=== PATIENT | male | born 1965 | race Caucasian/White ===

== ENCOUNTER 2017-11-03 10:22 | Emergency (ER) | payer MEDICAID ==
[~2017-11-03] VITALS: Ht 185.4 cm; Wt 79.4 kg
--- NOTE | 2017-11-03 10:46 | NUR ---
[facility]: ABNORMAL CT ABDOMEN "DEHISCENCE AT ANASTOMOSIS WITH LARGE LOCULATED GAS COLLECTION EXTENDING ALONG L ANTERIOR ABDOMINAL CAVITY". PT IS AAOX3 AND NAD IS PRESENT. VSS. AWAITING MD EVAL.
[2017-11-03] MEDS ORDERED: PIPERACILLIN /TAZOBACTAM 3.375 G in IV D5W 50 ML IV ONE (11:30)
[2017-11-03] MEDS: IV NS 0.9% 1,000 ML BAG IV ONE (11:40)
[2017-11-03 11:47] LABS: BASOPHILS # (AUTO) 0.3 /CMM (0.0-0.2); BASOPHILS % (AUTO) 2.4 % (0.0-2.0); EOSINOPHILS # (AUTO) 0.2 /CMM (0.0-0.7); EOSINOPHILS % (AUTO) 1.4 % (0.0-6.0); HEMATOCRIT 25 % (39-51); HEMOGLOBIN 8.6 g/dL (13.5-17.5); LYMPHOCYTES # (AUTO) 1.1 /CMM (0.8-4.8); LYMPHOCYTES % (AUTO) 8.8 % (20.0-44.0); MEAN CORPUSCULAR HEMOGLOBIN 28 PG (26.0-33.0); MEAN CORPUSCULAR HGB CONC 34 g/dl (31.0-36.0); MEAN CORPUSCULAR VOLUME 82 fL (80-96); MONOCYTES # (AUTO) 1.3 /CMM (0.1-1.30); NEUTROPHILS # (AUTO) 9.3 /CMM (1.8-8.9); NEUTROPHILS % (AUTO) 76.4 % (43.0-81.0); PLATELET COUNT (AUTO) 259 /CMM (150-450); RDW COEFFICIENT OF VARIATION 15.4 (11.5-15.0); WHITE BLOOD COUNT (AUTO) 12.2 K/uL (4.3-11.0)
[2017-11-03 11:56] LABS: CREATININE 1.5 mg/dL (0.6-1.3); POTASSIUM 3.5 mmol/L (3.5-5.1)
[2017-11-03 12:00] LABS: INR 1.01 (0.87-1.13)
[2017-11-03] MEDS ORDERED: NA P133E RC (12:01)
[2017-11-03] MEDS ORDERED: MECL-102 PO (12:01)
[2017-11-03] MEDS ORDERED: CARV6.25 PO (12:01)
[2017-11-03] MEDS ORDERED: PANT40TA2 PO (12:01)
[2017-11-03] MEDS ORDERED: CALC0.5C11 PO (12:01)
[2017-11-03] MEDS ORDERED: BISA10SU8 RC (12:01)
[2017-11-03] MEDS ORDERED: ONDA4TAB5 PO (12:01)
[2017-11-03] MEDS ORDERED: FERR-58 PO (12:01)
[2017-11-03] MEDS ORDERED: ACET-868 PO (12:01)
[2017-11-03] MEDS ORDERED: MAGN400O6 PO (12:01)
[2017-11-03 12:02] LABS: ALBUMIN 2.5 g/dL (3.4-5.0); BILIRUBIN,DIRECT 0.1 mg/dL (0.0-0.2); BILIRUBIN,TOTAL 0.6 mg/dL (0.2-1.0)
[2017-11-03 12:03] LABS: TROPONIN I 0.077 ng/mL (0.00-0.056)
--- NOTE | 2017-11-03 13:25 | NUR ---
Patient is resting comfortably in bed with eyes closed. Easily aroused. VSS
[2017-11-03] MEDS ORDERED: ASPIRIN EC 325 MG TABLET.DR PO ONE (13:30)
[2017-11-03 14:40] LABS: APPEARANCE,URINE SL CLOUDY (CLEAR); BILIRUBIN,URINE NEGATIVE (NEGATIVE); BLOOD, URINE NEGATIVE Ery/uL (NEGATIVE); COLOR,URINE YELLOW (YELLOW); KETONES,URINE NEGATIVE (NEGATIVE); LEUKOCYTE ESTERASE ,URINE NEGATIVE (NEGATIVE); NITRITE, URINE NEGATIVE (NEGATIVE); PROTEIN,URINE NEGATIVE (NEGATIVE); UGLUCOSE NEGATIVE (NEGATIVE); UROBILINOGEN,URINE 0.2 EU/dL (0.2)
[2017-11-03] MEDS ORDERED: IOHEXOL-300 100 ML VIAL IV ONE (14:40)
[2017-11-03] MEDS ORDERED: CT SWABBABLE VALVE TRANS SET 1 EA INFUS.SET MC ONE (14:40)
[2017-11-03] MEDS ORDERED: IV NS 0.9% 250 ML IV ONE (14:41)
[2017-11-03] MEDS ORDERED: ASPIRIN 325 MG TABLET ONE (15:01)
--- NOTE | 2017-11-03 17:50 | NUR ---
SET UP BLS TRANSPORT BACK TO [facility] - ETA 30 MIN -
--- NOTE | 2017-11-03 19:10 | NUR ---
IV removed. Catheter intact and site benign. Pressure and 4x4 applied to site. No bleeding noted.Patient discharged to home in stable condition. Written and verbal after care instructions given. Patient verbalizes understanding of instruction. GAVE REPORT TO OLEG[facility]IO FROM THE [facility]. PT IS TRANFERED ONTO THE [facility] AND IS BEING TRANSPORTED OUT OF ER. PT.
[2017-11-03 19:13] VITALS: BP 118/72
== END 2017-11-03 19:10 ==
LOC: ER 10:25
DX: K94.09 Other complications of colostomy (principal); R79.89 Other specified abnormal findings of blood chemistry; I10 Essential (primary) hypertension; Z85.72 Personal history of non-Hodgkin lymphomas
CPT/HCPCS: 36415; 71045; 74160; 80048; 80076; 81001; 83605; 84484; 85025; 85730; 87040 ×2; 87086; 93005; 96361; 96374; 99285; A4606; J2543; J7040; J7050; J7060; Q9967; Z7610; 81000-TC